=== PATIENT | female | born 1950 | race Caucasian/White ===

== ENCOUNTER 2018-08-06 15:36 | Emergency (ER) | payer MEDICARE, BC ==
--- NOTE | 2018-08-06 16:49 | ED ---
Upper Extremity Pain - HPI Summary HPI Summary: 68-year-old female presents with right wrist and elbow pain after fall today. She states he also landed on her wrist and elbow. She denies any pain currently of her tailbone which she also landed on. No difficulty walking. Has full range of motion of her wrist with pain. Pain is greatest on the ulnar aspect of her wrist. No numbness or tingling. Full range elbow. She states she is previously broken her wrist on the right side. She is right-handed. Denies any head injury or loss consciousness. Denies any other injury. - History of Current Complaint Chief Complaint: EDExtremityUpper Stated Complaint: FALL Time Seen by Provider: 08/06/18 16:07 - Allergies/Home Medications Allergies/Adverse Reactions: Allergies Allergy/AdvReac Type Severity Reaction Status Date / Time No Known Allergies Allergy Verified 08/06/18 15:45 PMH/Surg Hx/FS Hx/Imm Hx Endocrine/Hematology History: Denies: Hx Diabetes Cardiovascular History: Denies: Hx Hypertension, Hx Pacemaker/ICD Respiratory History: Denies: Hx Asthma Sensory History: Denies: Hx Hearing Aid Psychiatric History: Denies: Hx Panic Disorder - Cancer History Hx Chemotherapy: No Hx Radiation Therapy: No - Surgical History Surgery Procedure, Year, and Place: ectopic tubal , bilateral knee arthroscopy, complete hysterectomy, thumb surgery Infectious Disease History: No Infectious Disease History: Denies: Traveled Outside the [place] in Last 30 Days - Family History Known Family History: Positive: Hypertension - Social History Alcohol Use: Occasionally Substance Use Type: Reports: None Smoking Status (MU): Former Smoker Review of Systems Negative: Fever Negative: Chest Pain Negative: Shortness Of Breath Positive: Myalgia - right wrist and elbow pain All Other Systems Reviewed And Are Negative: Yes Physical Exam Triage Information Reviewed: Yes Vital Signs On Initial Exam: Initial Vitals Temp Pulse Resp BP Pulse Ox 97.3 F 80 17 117/72 99 08/06/18 15:42 08/06/18 15:42 08/06/18 15:42 08/06/18 15:42 08/06/18 15:42 Vital Signs Reviewed: Yes Appearance: Positive: Well-Appearing Skin: Positive: Warm, Dry Head/Face: Positive: Normal Head/Face Inspection Eyes: Positive: Normal, Conjunctiva Clear ENT: Positive: Pharynx normal Respiratory/Lung Sounds: Positive: Clear to Auscultation, Breath Sounds Present Cardiovascular: Positive: Normal, RRR Abdomen Description: Positive: Nontender, Soft, Other: - nontender tailbone Bowel Sounds: Positive: Present Musculoskeletal: Positive: Strength/ROM Intact - right elbow, Limited @ - right wrist, Other - tenderness right snuff box, tenderness right radius and ulnar. good pulses, capillary refill<2 secs, minimial tenderness right elbow Neurological: Positive: Normal Psychiatric: Positive: Normal Diagnostics - Vital Signs Vital Signs Temp Pulse Resp BP Pulse Ox 08/06/18 15:42 97.3 F 80 17 117/72 99 - Laboratory Lab Statement: Any lab studies that have been ordered have been reviewed, and results considered in the medical decision making process. - Radiology wrist Radiology Interpretation Completed By: Radiologist Summary of Radiographic Findings: IMPRESSION: 1. Normal right elbow. 2. Questionable nondisplaced fracture along the dorsal distal margin of the distal right. radius. Course/Dx - Course Course Of Treatment: 68-year-old female presents with right wrist and elbow pain after fall today. She states he also landed on her wrist and elbow. She denies any pain currently of her tailbone which she also landed on. No difficulty walking. Has full range of motion of her wrist with pain. Pain is greatest on the ulnar aspect of her wrist. No numbness or tingling. Full range elbow. She states she is previously broken her wrist on the right side. She is right-handed. Denies any head injury or loss consciousness. Denies any other injury. On exam tenderness over snuffbox and radial and ulnar right wrist. Neurovascular intact. Nontender tailbone. No Tenderness of Right Elbow. X-Ray Shows Normal Right Elbow. Shows Possible Right Radius Fracture Which Is Where Pain Is. Also Snuffbox Tenderness. Patient States with Only like a Removable Splint. Gave a Thumb Spica Splint told Keep It on the Area. Told to Follow-Up with Orthopedic. Patient Understands Agrees with Plan. - Diagnoses Differential Diagnosis/HQI/PQRI: Positive: Fracture (Closed), Strain, Sprain Provider Diagnoses: Right wrist injury Discharge - Sign-Out/Discharge Documenting (check all that apply): Patient Departure - Discharge Plan Condition: Good Disposition: HOME Patient Education Materials: Wrist Fracture in Adults (ED) Referrals: Merary Cook MD [Primary Care Provider] - Eder Cohen MD [Medical Doctor] - Additional Instructions: Take Tylenol every 6 hours as needed for pain Apply ice, rest, elevate keep splint on area follow up with ortho Return to ED if develop any new or worsening symptoms - Billing Disposition and Condition Condition: GOOD Disposition: Home
[2018-08-06 17:47] VITALS: BP 112/71
== END 2018-08-06 17:46 | disposition home or self-care (01) ==
LOC: ED 15:36
DX: S69.91XA Unspecified injury of right wrist, hand and finger(s), initial encounter (principal); S59.901A Unspecified injury of right elbow, initial encounter; W19.XXXA Unspecified fall, initial encounter; Y92.9 Unspecified place or not applicable; Z87.891 Personal history of nicotine dependence
CPT/HCPCS: 99282